=== PATIENT | male | born 2000 | race Two or more races ===

== ENCOUNTER 2024-12-28 11:37 | Emergency (ER) | payer SELFPAY ==
[2024-12-28 11:38] VITALS: PULSE 160; RESP 20; O2SAT 99
--- NOTE | 2024-12-28 11:50 | PC.NURSE ---
PT AND FRIEND LEFT. THEY WANTED TO GO HOME AND NOT STAY. [facility] HERE AND TALKED TO THEM.
== END 2024-12-28 13:01 | disposition left against medical advice (07) ==
PROVIDERS: Emergency Provider Emergency Medicine
DX: Z53.21 Procedure and treatment not carried out due to patient leaving prior to being seen by health care provider (principal)
CPT/HCPCS: 99281

== ENCOUNTER 2025-04-15 19:28 | Emergency (ER) | payer SELFPAY ==
[2025-04-15 19:39] VITALS: PULSE 105; RESP 16; O2SAT 97; BMI 24.3
--- NOTE | 2025-04-15 20:00 | PC.NURSE ---
pt pulled out iv adnd tried to leave
--- NOTE | 2025-04-15 20:04 | PC.NURSE ---
pt pulled out iv threatening medical staff, refused medical treatment non complaint.
--- NOTE | 2025-04-16 04:48 | PC.RT ---
at [address] place pt on 4l nc due to spo2 dropping to 80s, hr 108, spo2 improved to 100% RR18
== END 2025-04-15 20:05 | disposition left against medical advice (07) ==
LOC: SERX 20:13
PROVIDERS: Emergency Provider Emergency Medicine
DX: Z53.21 Procedure and treatment not carried out due to patient leaving prior to being seen by health care provider (principal)
CPT/HCPCS: 99283

== ENCOUNTER 2025-04-22 00:26 | Emergency (ER) | payer SELFPAY ==
[2025-04-22 00:32] VITALS: PULSE 92; RESP 16; O2SAT 98
--- NOTE | 2025-04-22 01:32 | PC.NURSE ---
PATIENT WALKED OUT OF ED LOBBY AT THIS TIME, THIS NURSE WENT OUTSIDE TO CALL PATIENT AND NO ANSWER RECEIVED.
--- NOTE | 2025-04-22 01:41 | PC.NURSE ---
STAFF CALLED PATIENT IN THE LOBBY, RESTROOM, AND OUTSIDE NO ANSWER RECEIVED.
--- NOTE | 2025-04-22 02:03 | PC.NURSE ---
STAFF CALLED PATIENT OUTSIDE, NO ANSWER RECEIVED.
== END 2025-04-22 02:03 | disposition left against medical advice (07) ==
LOC: SERX 01:35
PROVIDERS: Emergency Provider Emergency Medicine
DX: Z53.21 Procedure and treatment not carried out due to patient leaving prior to being seen by health care provider (principal)
CPT/HCPCS: 99282

== ENCOUNTER 2025-05-01 00:26 | Emergency (ER) | payer SELFPAY ==
[2025-05-01 00:27] VITALS: BMI 22.6
[2025-05-01 00:52] VITALS: BP 128/77; PULSE 108; RESP 18; TEMP 37.1; O2SAT 95
== END 2025-05-01 01:02 | disposition left against medical advice (07) ==
LOC: SERX 01:15
PROVIDERS: Emergency Provider Emergency Medicine
DX: Z53.21 Procedure and treatment not carried out due to patient leaving prior to being seen by health care provider (principal)
CPT/HCPCS: 99282

== ENCOUNTER 2025-05-18 12:35 | Emergency (ER) | payer SELFPAY ==
[2025-05-18 12:38] VITALS: PULSE 118; RESP 20; O2SAT 96
[2025-05-18 12:48] VITALS: BP 132/79; PULSE 98; RESP 20; TEMP 36.9; O2SAT 95
--- NOTE | 2025-05-18 12:50 | EKG_ITS ---
[facility] Test Date: 2025-05-18 Pat Name: NAGA ALMONTE Department: Room: - Gender: Male Director Learning Services: : 2000 Requested By: Ingrid Snider Order Number: [id number] Reading MD: Ingrid Snider Measurements Intervals Center Rate: 82 P: 59 SC: 146 QRS: 29 QRSD: 93 T: 28 QT: 375 QTc: 441 Interpretive Statements SINUS RHYTHM No previous ECG available for comparison /store/S0/[id number]/[id number].pdf
--- NOTE | 2025-05-18 12:54 | XR_ITS ---
Examination: Knee, left , 3 views Technique: Knee AP, lateral, oblique 3 views Date and time of exam: May 18, 2025 at 1344 hours INDICATIONS: Injury to the knee 2 days ago with knee pain FINDINGS: No fracture or dislocation. No foreign body IMPRESSION: No fracture or dislocation
--- NOTE | 2025-05-18 12:58 | EDNOTE_ITS ---
ED Alcohol RME/HPI General Chief Complaint: Alcohol Stated Complaint: ACOHOL INTOX Time Seen by Provider: 05/18/25 12:46 Source: patient and EMS Arrival date/time: 05/18/25 12:35 Mode of arrival: EMS Limitations: no limitations RME / HPI RME / HPI narrative: 24-year-old male was brought in by EMS for public intoxication. He was initially evaluated by police per EMS, he was given the option of being arrested or coming to the emergency room for evaluation. Patient opted to come here. He states he was drinking hurricanes and beer today. He does not quantify the amount. He denies any falls or injuries. He does have left knee pain, erythema, and mild edema for 1 day. Denies any chronic medical history. He is homeless. He has no other acute complaints. Related Data Previous Rx's ?Medication ?Instructions ?Recorded sulfamethoxazole 800 1 tab PO BID #14 tabs mg-trimethoprim 160 mg tablet (Bactrim DS) doxycycline hyclate 100 mg tablet 100 mg PO BID 7 days #14 tabs 05/18/25 Allergies Allergy/AdvReac Type Severity Reaction Status Date / Time No Known Allergies Allergy Verified 05/07/24 17:49 Review of Systems Review of Systems Systems Reviewed: All systems reviewed, normal except as documented ED Exam General Limitations: Present no limitations General appearance: Present alert, in no apparent distress and appears intoxicated Head Head exam: Present atraumatic, normocephalic and normal inspection Expanded Head Exam Head exam physical: Absent laceration, abrasion, contusion, raccoon eyes or Miller's sign Eye Eye exam: Present normal appearance, PERRL and EOMI ENT ENT exam: Present normal exam, normal oropharynx and mucous membranes moist Neck Neck exam: Present normal inspection, full ROM and trachea midline Chest Chest inspection: Present normal inspection and symmetric chest wall rise Respiratory Respiratory exam: Present normal lung sounds bilaterally Cardiovascular Cardiovascular exam: Present regular rate, normal rhythm and normal heart sounds Abdominal Exam Abdominal exam: Present soft and normal bowel sounds Extremities Exam Extremities exam: Present full ROM and other (There is mild erythema, warmth, edema, at the left knee. ) Back Exam Back exam: Present normal inspection and full ROM Neurological Exam Neurological exam: Present alert and oriented X3 Psychiatric Psychiatric exam: Present normal affect and normal mood Skin Skin exam: Present warm, dry, intact and normal color Course Course Course Narrative: At approximately 1430 p.m., patient removed his IV and requested to leave the emergency room. His gait is not stable. Workup was not completed although his alcohol level is greater than 500. Patient is not safe to leave the emergency room at this time. He was informed that he cannot safely be discharged from the emergency room and we are requesting that he stay in the for further care monitoring and possible interventions. Quality Measures none Orders Category Date Time Status EKG (ED ONLY) *Do not use* NOW Care 05/18/25 12:50 Completed EKG (ED Only) Stat Exams 05/18/25 12:50 Draft XR knee LT 3V Stat Exams 05/18/25 12:54 Completed Alcohol, Blood Medical Stat Lab 05/18/25 13:30 Completed CBC Stat Lab 05/18/25 13:30 Completed CMP [Comprehensive Metabolic Panel] Stat Lab 05/18/25 13:30 Completed CRP [C-Reactive Protein] Stat Lab 05/18/25 13:30 Completed Chlamydia/GC/TV - PCR Stat Lab 05/18/25 Ordered Drug Screen,Urine Stat Lab 05/18/25 13:41 Completed Lipase Stat Lab 05/18/25 13:30 Completed Sed Rate (ESR) Stat Lab 05/18/25 13:30 Completed UA, C/S IF [Urinalysis, C/S if Indicated] Stat Lab 05/18/25 13:41 Completed Uric Acid Stat Lab 05/18/25 13:30 Completed Doxycycline [Vibramycin] Med 05/18/25 18:31 Discontinued 100 mg PO X1 ONE Sodium Chloride 0.9% 1000 ml [Ns] 1,000 ml Med 05/18/25 12:48 Discontinued IV 999 mls/hr fentaNYL INJ [Sublimaze Inj] Med 05/18/25 12:48 Discontinued 50 mcg IVP X1 ONE Vital Signs Vital signs: Vital Signs Temperature 98.4 F 05/18/25 12:48 Pulse Rate 98 05/18/25 12:48 Respiratory Rate 20 05/18/25 12:48 Blood Pressure 132/79 H 05/18/25 12:48 Pulse Oximetry (%) 95 05/18/25 12:48 Oxygen Delivery Method Venturi Mask 05/18/25 12:48 Discharge Plan Plan Patient Disposition: HOME (Self Care) Patient condition on transfer: Stable Prescriptions/Referrals Prescriptions/Med Rec: New doxycycline hyclate 100 mg tablet 100 mg PO BID 7 Days Qty: 14 0RF No Action sulfamethoxazole-trimethoprim [Bactrim DS] 800-160 mg tablet 1 tab PO BID Qty: 14 0RF Referrals: No Primary/Family,Physician [Primary Care Provider] - In 1 week Problem List Clinical Impression: Alcoholic intoxication, Cellulitis Patient/Caregiver Discharge Instructions Education Materials: ED Cellulitis, ED Alcohol Intoxication Additional Instructions: - Obtain a primary doctor for close follow-up. - Use the provided antibiotic for antimicrobial coverage. - Return as needed for any worsening or emergent changes. Print Language: [place] Stand Alone Forms: [employer] Award Info., Patient Portal Info Letter Alcohol MDM Narrative MDM Narrative: 24-year-old male was brought in by EMS for public intoxication. He was initially evaluated by police per EMS, he was given the option of being arrested or coming to the emergency room for evaluation. Patient opted to come here. He states he was drinking hurricanes and beer today. He does not quantify the amount. He denies any falls or injuries. He does have left knee pain, erythema, and mild edema for 1 day. Denies any chronic medical history. He is homeless. He has no other acute complaints. On exam, patient was initially tachycardic. Vital signs are otherwise stable. Workup reveals elevated alcohol level. Workup was otherwise unremarkable. Patient stayed in the ER and was observed for period of time. He was found due to be self ambulating without assistance several times. His gait was stable. At approximately 2044 PM, patient went was again reevaluated. He is walking in the ER with a stable gait. He wants to be discharged. Will cover him with doxycycline for potential cellulitis of the left knee, this will also cover possible gonococcus. Patient will be discharged in the [place] time. He agrees to return as needed for worsening emergent changes Patient data External records reviewed:: EMS form Clinical information provided by:: patient and EMS Social determinants that could affect healthcare access:: substance use Patient has the following chronic illnesses:: Alcohol abuse How is presenting disease/condition affected by chronic disease/condition?: exacerbated by Evaluation data The following diagnostics were reviewed and interpreted by me:: lab results Lab and/or radiology exams considered but not ordered:: n/a Interpretation Summary: Elevated alcohol level Medications / Prescriptions Medications or Prescriptions considered but not ordered:: n/a Medication administrations:: Medication Administration History Discontinued Medications Doxycycline Hyclate (Doxycycline 100 Mg Tablet) 100 mg PO X1 ONE Stop: 05/18/25 18:32 Last Admin: 05/18/25 18:47 Dose: 100 mg Documented By: ALEKSANDR Fentanyl Citrate (Fentanyl Cit Inj 50 Mcg/Ml Amp 2ml) 50 mcg IVP X1 ONE Stop: 05/18/25 12:49 Last Admin: 05/18/25 13:26 Dose: Not Given Documented By: NATHALIA Non-Admin Reason: Change of Condition Sodium Chloride (Ns) 1,000 mls @ 999 mls/hr IV .Q1H1M ONE Stop: 05/18/25 13:48 Last Infusion: 05/18/25 14:19 Dose: Infused Documented By: Admin: 05/18/25 13:18 Dose: 999 mls/hr Documented By: NATHALIA See above Consultations Consultation(s) initiated? (list below): No Diagnosis Differential diagnosis alcohol: hypomagnesemia and alcohol intoxication Most likely diagnosis given after review of the tests above:: Alcohol abuse Admission Indicated Admission indicated?: not indicated Admission Request Was there a request for admission?: No Disposition Plan Disposition Plan: Discharge Discharge Attestation Discharge Attestation: The patient and all family members were given an opportunity to ask questions and understood the discharge instructions. Discharge instructions specifically effects, indications for sooner follow up or return to the emergency department, and the expected course of current diagnosis. Patient condition: Stable
[2025-05-18] MEDS: SODIUM CHLORIDE 0.9% 1000 ML 1,000 ML 999 ML IV (13:18)
[2025-05-18 13:32] VITALS: BMI 21.3
[2025-05-18 13:54] LABS: Collection Type, Urine Voided; RBC,Urine 0 /hpf (0-3); Squamous Epithelial Cell,Urine 0 /hpf (0-5); WBC,Urine 0 /hpf (0-5)
[2025-05-18 14:02] LABS: Basophils # (Auto) 0.1 Thou/mm3 (0.0-0.2); Basophils % (Auto) 1 % (0-2.5); Eosinophils # (Auto) 0.0 Thou/mm3 (0.0-0.5); Eosinophils % (Auto) 0 % (0-10); Hematocrit 38.8 % (41.0-53.0); Hemoglobin 13.3 g/dL (13.5-16.0); Immature Granulocytes Auto 0.02 Thou/mm3 (0.00-0.00); Lymphocytes # (Auto) 1.2 Thou/mm3 (1.0-4.8); Lymphocytes % (Auto) 19 % (10-50); Mean Corpuscular HGB Conc 34.3 g/dl (31.0-37.0); Mean Corpuscular Hemoglobin 32.3 pg (25.0-35.0); Mean Corpuscular Volume 94 fL (80-100); Monocytes # (Auto) 0.5 Thou/mm3 (0.0-0.8); Monocytes % (Auto) 8 % (0-12); Neutrophils # (Auto) 4.7 Thou/mm3 (1.8-7.7); Neutrophils % (Auto) 72 % (37-80); Nucleated Red Blood Cell # 0.00 Thou/mm3 (0.00-0.00); Nucleated Red Blood Cell % 0 /100 WBC (0); Platelet Count 99 Thou/mm3 (140-440); RDW Standard Deviation 45.0 fL (35.1-43.9); Red Blood Count 4.12 Miln/mm3 (4.50-5.90); White Blood Count 6.6 Thou/mm3 (3.8-10.6)
[2025-05-18 14:17] LABS: Bilirubin,Urine Negative (Negative); Blood,Urine Trace (Negative); Clarity,Urine Clear (Clear/Hazy); Color,Urine Colorless (Lt Yel-Yel); Culture Indicated,Urine Not Indicated; Glucose, Urine Negative (Negative); Ketones,Urine Negative (Negative); Leukocyte Esterase,Urine Negative (Negative); Nitrite,Urine Negative (Negative); PH,Urine 6.5 (5.0-7.0); Protein,Urine 1+ (Neg - Trace); Specific Gravity,Urine 1.004 (1.001-1.035); Urobilinogen,Urine Negative mg/dL (0.0-1.0)
[2025-05-18 14:24] LABS: Amphetamine/Methamp Scrn,U Negative (Negative); Barbiturate Screen,Urine Negative (Negative); Benzodiazepines Screen,Urine Negative (Negative); Benzoylecgonine Screen, Ur Negative (Negative); Fentanyl Screen,Urine Negative (Negative); Opiate Screen,Urine Negative (Negative); THC Screen,Urine Negative (Negative)
[2025-05-18 14:30] LABS: Alanine Aminotransferase 127 U/L (10-49); Albumin, Serum 4.5 gm/dL (3.5-5.0); Albumin/Globulin Ratio 1.4 (1.2-2.2); Alkaline Phosphatase 298 U/L (46-116); Anion Gap 18 (7-16); Aspartate Amino Transferase 370 U/L (0-34); BUN/Creatinine Ratio 8 Ratio (12-20); Bilirubin,Total 0.4 mg/dL (0.3-1.2); Blood Urea Nitrogen < 5 mg/dL (9-23); C-Reactive Protein < 0.5 mg/dL (0.0-0.9); Calcium 9.5 mg/dL (8.3-10.6); Calcium (Corrected) 9.5 mg/dL (8.5-10.1); Carbon Dioxide 23.5 mMol/L (20.0-31.0); Chloride 101 mMol/L (98-107); Creatinine (Component) 0.6 mg/dL (0.6-1.3); Estimated Creatinine Clearance 162.7 mL/min (>60); Globulin 3.2 gm/dL (2.3-3.5); Glucose 96 mg/dL (74-106); Lipase 152 U/L (12-53); Osmolality,Calculated 280 (275-295); Potassium 3.9 mMol/L (3.4-5.1); Sodium 142 mMol/L (136-145); Total Protein 7.7 gm/dL (5.7-8.2); eGFR > 60 See Note
[2025-05-18 14:35] LABS: Alcohol, Blood Medical 527.2 mg/dL (0-10.0)
[2025-05-18 14:39] LABS: Uric Acid 5.7 mg/dL (3.7-9.2)
[2025-05-18 15:20] LABS: Sed Rate (ESR) 87 mm/hr (0-15)
[2025-05-18 16:14] VITALS: BP 126/70; PULSE 80; RESP 18; TEMP 36.9; O2SAT 99
[2025-05-18 18:45] VITALS: BP 124/80; PULSE 97; RESP 17; TEMP 36.7; O2SAT 98
[2025-05-18] MEDS: DOXYCYCLINE 100 MG TABLET PO (18:47)
[2025-05-18 20:53] VITALS: BP 135/96; PULSE 105; RESP 16; TEMP 36.9; O2SAT 98
--- NOTE | 2025-05-18 20:53 | PC.NURSE ---
patient walked around er 2 laps with steady gait. patient denies any dizziness
[2025-05-19 10:04] LABS: Chlamydia trachomatis PCR Negative (Not Detect); Neisseria Gonorrhoeae DNA PCR Negative (Not Detect); Trichomonas Negative (Negative)
== END 2025-05-18 21:00 | disposition home or self-care (01) ==
PROVIDERS: Physician Assistant Medical; Emergency Provider Emergency Medicine
DX: F10.129 Alcohol abuse with intoxication, unspecified (principal); M25.562 Pain in left knee; Z59.00 Homelessness unspecified
CPT/HCPCS: 36415; 73562; 80053; 80307; 80320; 81001; 83690; 84550; 85025; 85652; 86140; 87491; 87591; 87661; 93005; 96360; 99283; J7030; A9270; G0480

== ENCOUNTER 2025-06-04 17:35 | Emergency (ER) | payer SELFPAY ==
[2025-06-04 17:38] VITALS: BP 114/64; PULSE 99; RESP 16; TEMP 36.7; O2SAT 96
[2025-06-04 18:05] VITALS: PULSE 101; RESP 18; O2SAT 98; BMI 25.8
--- NOTE | 2025-06-04 19:13 | EDNOTE_ITS ---
Nausea/Vomit./Diarrhea-RME/HPI General Chief complaint: Abdominal Pain Stated complaint: DRINKING ETOH TODAY, ABD PAIN Time Seen by Provider: 06/04/25 19:07 Arrival date/time: 06/04/25 17:35 24M with history of alcohol use presents to ED with 1 day of ab pain and some non-bloody diarrhea. Patient has been drinking today, but he drinks every day. Limitations: no limitations Related Data Previous Rx's ?Medication ?Instructions ?Recorded sulfamethoxazole 800 1 tab PO BID #14 tabs mg-trimethoprim 160 mg tablet (Bactrim DS) Allergies Allergy/AdvReac Type Severity Reaction Status Date / Time No Known Allergies Allergy Verified 06/04/25 18:11 Review of Systems Review of Systems Systems Reviewed: All systems reviewed, normal except as documented Constitutional Constitutional: Reports system reviewed and no additional complaints, except as documented, Denies fever(s) and Denies headache(s) ENT Ears, Nose, Mouth, and Throat: Denies disequilibrium and Denies headache(s) Cardiovascular Cardiovascular: Reports system reviewed and no additional complaints, except as documented, Denies chest pain and Denies dyspnea Respiratory Respiratory: Reports system reviewed and no additional complaints, except as documented, Denies cough and Denies dyspnea Gastrointestinal Gastrointestinal: Reports system reviewed and no additional complaints, except as documented, Reports as per HPI, Reports abdominal pain, Reports diarrhea, Denies nausea and Denies vomiting Neurologic Neurologic: Reports system reviewed and no additional complaints, except as documented, Denies confusion, Denies disequilibrium and Denies headache(s) Psychiatric Psychiatric: Denies confusion Past Medical History Past Medical History CARDIAC: Negative Congestive Heart Failure RESPIRATORY: Negative Chronic Obstructive Pulmonary Disease (COPD) GENITOURINARY: Negative Renal Disease ENDOCRINE: Negative Diabetes Mellitus Type 1 or Diabetes Mellitus Type 2 PSYCHO/SOCIAL: Positive Anxiety Social History SMOKING STATUS: Former smoker ED Exam General Limitations: Present no limitations General appearance: Present alert, in no apparent distress and appears intoxicated Head Head exam: Present atraumatic Eye Eye exam: Present normal appearance, PERRL and EOMI ENT ENT exam: Present normal exam, normal oropharynx and mucous membranes moist Neck Neck exam: Present normal inspection, full ROM and trachea midline Chest Chest inspection: Present normal inspection and symmetric chest wall rise Respiratory Respiratory exam: Present normal lung sounds bilaterally Cardiovascular Cardiovascular exam: Present regular rate, normal rhythm and normal heart sounds Abdominal Exam Abdominal exam: Present soft and normal bowel sounds Extremities Exam Extremities exam: Present normal inspection and full ROM Back Exam Back exam: Present normal inspection and full ROM Neurological Exam Neurological exam: Present alert, oriented X3 and CN II-XII intact Psychiatric Psychiatric exam: Present normal affect and normal mood Skin Skin exam: Present warm, dry, intact and normal color Course Quality Measures none Orders Category Date Time Status Famotidine [Pepcid] Med 06/04/25 19:08 Discontinued 40 mg PO X1 ONE Ondansetron Odt [Zofran Odt] Med 06/04/25 19:08 Discontinued 4 mg PO X1 ONE mg Hyd/Al Hyd/Betsey Susp [Maalox Susp] Med 06/04/25 19:08 Discontinued 30 ml PO X1 ONE Vital Signs Vital signs: Vital Signs Temperature 98.0 F 06/04/25 17:38 Pulse Rate 99 06/04/25 17:38 Respiratory Rate 16 06/04/25 17:38 Blood Pressure 114/64 06/04/25 17:38 Pulse Oximetry (%) 96 06/04/25 17:38 Oxygen Delivery Method Room Air 06/04/25 17:38 O2 at 96% on RA and WNLs Nausea/Vomiting/Diarrhea MDM Narrative MDM Narrative:: 24M with history of alcohol use presents to ED with 1 day of ab pain and some non-bloody diarrhea. Patient has been drinking today, but he drinks every day. Physical exam reveals no ab tenderness. Patient is afebrile, calm, but intoxicated. Patient is smiling. Patient eloped. Patient data External records reviewed:: [facility] previous records Clinical information provided by:: patient Social determinants that could affect healthcare access:: alcohol use Patient has the following chronic illnesses:: alcohol How is presenting disease/condition affected by chronic disease/condition?: exacerbated by Evaluation data The following diagnostics were reviewed and interpreted by me:: other (specify) (none) Lab and/or radiology exams considered but not ordered:: not ordered Interpretation Summary: n/a Medications / Prescriptions Medications / Prescriptions considered but not ordered:: ordered Medication administrations:: Medication Administration History Discontinued Medications Al Hydrox/Mg Hydrox/Simethicone (Mg Hyd/Al Hyd/Betsey (Maalox Reg) Susp 30 Ml Udc) 30 ml PO X1 ONE Stop: 06/04/25 19:09 Famotidine (Famotidine 20 Mg Tablet) 40 mg PO X1 ONE Stop: 06/04/25 19:09 Ondansetron HCl (Ondansetron Odt 4 Mg Tabrap) 4 mg PO X1 ONE; Protocol Stop: 06/04/25 19:09 above Consultations Consultation(s) initiated? (list below): No Diagnosis Nausea Differential Diagnosis: traveler's diarrhea, food poisoning, gastroenteritis, clostridium difficile infection, drug-induced nausea and vomiting and dehydration Most likely diagnosis given after review of the tests above:: gastroenteritis, alcohol use Admission Indicated Admission indicated?: not indicated Admission Request Was there a request for admission?: No Disposition Plan Disposition Plan: other (specify) (eloped) Discharge Plan Plan Patient Disposition: Elopement Prescriptions/Referrals Prescriptions/Med Rec: No Action sulfamethoxazole-trimethoprim [Bactrim DS] 800-160 mg tablet 1 tab PO BID Qty: 14 0RF Referrals: No Primary/Family,Physician [Primary Care Provider] - In 1 week Problem List Clinical Impression: Gastroenteritis, Alcohol use Patient/Caregiver Discharge Instructions Print Language: [place] PETER/ANDREW Supervising Physician PETER/ANDREW Supervising Physician: Dr. James
== END 2025-06-04 20:33 | disposition left against medical advice (07) ==
LOC: SERX 19:15
PROVIDERS: Emergency Provider Emergency Medicine
DX: K52.9 Noninfective gastroenteritis and colitis, unspecified (principal); F10.90 Alcohol use, unspecified, uncomplicated
CPT/HCPCS: 99281

== ENCOUNTER 2025-06-15 18:14 | Emergency (ER) | payer SELFPAY ==
--- NOTE | 2025-06-15 18:23 | PD.EDADULT ---
ED General RME/HPI General Chief complaint: Suicidal Stated complaint: HOLD Time Seen by Provider: 06/15/25 18:15 Arrival date/time: 06/15/25 18:14 CC: Suicidal ideation HPI patient presents to the ER via PD not in handcuffs on 5150. Patient is well-known to us for recurrent alcohol intoxication. PD states patient was found in a roadside coherent with no slurred speech, stating that he wanted to end it . PD reports the patient's plan is to do as his father did only this time I will get the not straight implying that father hung himself. Patient was found lying in the street. Patient noted to have a medical identification band on his right wrist from another facility. He admits that he was in a rehab center but left. Patient has no specific complaints of pain. Related Data Previous Rx's ?Medication ?Instructions ?Recorded sulfamethoxazole 800 1 tab PO BID #14 tabs 05/07/24 mg-trimethoprim 160 mg tablet (Bactrim DS) Allergies Allergy/AdvReac Type Severity Reaction Status Date / Time No Known Allergies Allergy Verified 06/04/25 18:11 Review of Systems Review of Systems Narrative Review of Systems: GEN: No fever, no chills, no weight loss EYES: No discharge, no visual changes, no pain HEENT: No ear pain, no congestion, no sore throat PULM: No shortness of breath, no cough, no congestion CV: No chest pain, no dyspnea on exertion, no palpitations GI: No nausea, no vomiting, no diarrhea, no pain, no constipation : No frequency, no urgency, no dysuria MUSC/SKEL: No joint pain, no back pain SKIN: No rash PSYCH: No hallucinations, + suicidal ideation HEME/LYMPH: No easy bleeding or bruising tendencies NEURO: No weakness, no headache Past Medical History Past Medical History CARDIAC: Negative Congestive Heart Failure RESPIRATORY: Negative Chronic Obstructive Pulmonary Disease (COPD) GENITOURINARY: Negative Renal Disease ENDOCRINE: Negative Diabetes Mellitus Type 1 or Diabetes Mellitus Type 2 PSYCHO/SOCIAL: Positive Anxiety Social History SMOKING STATUS: Former smoker ED Exam Narrative Physical exam: [General: Appears not in any acute distress Head normocephalic HEENT: Within acceptable limits Neck is supple nontender Chest equal chest rise nontender to palpation Respiratory: Clear to auscultation no wheezes crackles or rubs CV: Rate rhythm is regular no murmurs rubs or clicks Abdomen is soft nontender no masses positive bowel sounds all 4 quadrants Back: No CVA tenderness no spinous process tenderness from cervical spine thoracic and lumbar spine Skin: Intact no petechiae rash induration ulceration or crepitus Extremities: Moving all extremity against resistance cap refill less than 2 seconds neurosensory intact Neuro: Awake alert oriented x3 Glascow coma 15 no focal deficits] Course Quality Measures none Orders Category Date Time Status Diet Regular Diet 06/16/25 Breakfast Active Alcohol, Blood Medical Stat Lab 06/15/25 18:33 Completed CBC Stat Lab 06/15/25 18:33 Completed CMP [Comprehensive Metabolic Panel] Stat Lab 06/15/25 18:33 Completed Drug Screen,Urine Stat Lab 06/15/25 19:01 Completed Vital Signs Vital signs: Vital Signs Temperature 99.2 F 06/15/25 18:27 Pulse Rate 121 H 06/15/25 18:27 Respiratory Rate 20 06/15/25 18:27 Blood Pressure 129/82 06/15/25 18:27 Pulse Oximetry (%) 95 06/15/25 18:27 Oxygen Delivery Method Room Air 06/15/25 18:27 Discharge Plan Plan Patient Disposition: HOME (Self Care) Prescriptions/Referrals Prescriptions/Med Rec: No Action sulfamethoxazole-trimethoprim [Bactrim DS] 800-160 mg tablet 1 tab PO BID Qty: 14 0RF Referrals: No Primary/Family,Physician [Primary Care Provider] - In 1 week Problem List Clinical Impression: Suicidal ideation, Alcohol intoxication, Illicit drug use Patient/Caregiver Discharge Instructions Education Materials: Recognizing Suicide Warning ..., ED Drug Abuse, ED Alcohol Intoxication Print Language: [place] Island[place] Stand Alone Forms: [employer] Award Info., Patient Portal Info Letter MDM Clinical Information Provided by patient and law enforcement Medical Records Reviewed [facility] Meds/Rx Considered, not Ordered None Labs/Rad/Tests considered, not Ordered None Chronic Illness/Social Conditions which may negatively complicate care or outcome(s)-explain: ETOH/drugs/substance abuse Lab Interpretation Lab(s) interpretation(s): CBC shows no leukocytosis H&H of 12.7 and 36.7 respectively. Platelets at 146. CMP shows sodium of 146 BUN of 6 glucose of 123. T. bili of 0.2 mild transaminitis. No other significant electrolyte imbalances alcohol level of 319. UDS is positive for methamphetamines marijuana and benzodiazepine.
[2025-06-15 18:27] VITALS: BP 129/82; PULSE 121; RESP 20; TEMP 37.3; O2SAT 95
[2025-06-15 18:42] LABS: Basophils # (Auto) 0.0 Thou/mm3 (0.0-0.2); Basophils % (Auto) 1 % (0-2.5); Eosinophils # (Auto) 0.1 Thou/mm3 (0.0-0.5); Eosinophils % (Auto) 1 % (0-10); Hematocrit 36.7 % (41.0-53.0); Hemoglobin 12.7 g/dL (13.5-16.0); Immature Granulocytes Auto 0.01 Thou/mm3 (0.00-0.00); Lymphocytes # (Auto) 2.2 Thou/mm3 (1.0-4.8); Lymphocytes % (Auto) 45 % (10-50); Mean Corpuscular HGB Conc 34.6 g/dl (31.0-37.0); Mean Corpuscular Hemoglobin 33.4 pg (25.0-35.0); Mean Corpuscular Volume 97 fL (80-100); Monocytes # (Auto) 0.3 Thou/mm3 (0.0-0.8); Monocytes % (Auto) 6 % (0-12); Neutrophils # (Auto) 2.3 Thou/mm3 (1.8-7.7); Neutrophils % (Auto) 48 % (37-80); Nucleated Red Blood Cell # 0.00 Thou/mm3 (0.00-0.00); Nucleated Red Blood Cell % 0 /100 WBC (0); Platelet Count 146 Thou/mm3 (140-440); RDW Standard Deviation 43.5 fL (35.1-43.9); Red Blood Count 3.80 Miln/mm3 (4.50-5.90); White Blood Count 4.9 Thou/mm3 (3.8-10.6)
--- NOTE | 2025-06-15 19:00 | PC.LAC ---
pt refusing to answer [facility] suicide screening,
[2025-06-15 19:14] VITALS: BMI 29.2
[2025-06-15 19:17] LABS: Alanine Aminotransferase 55 U/L (10-49); Albumin, Serum 4.9 gm/dL (3.5-5.0); Albumin/Globulin Ratio 1.9 (1.2-2.2); Alcohol, Blood Medical 319.2 mg/dL (0-10.0); Alkaline Phosphatase 146 U/L (46-116); Anion Gap 14 (7-16); Aspartate Amino Transferase 82 U/L (0-34); BUN/Creatinine Ratio 8 Ratio (12-20); Bilirubin,Total 0.2 mg/dL (0.3-1.2); Blood Urea Nitrogen 6 mg/dL (9-23); Calcium 9.7 mg/dL (8.3-10.6); Calcium (Corrected) 9.7 mg/dL (8.5-10.1); Carbon Dioxide 25.9 mMol/L (20.0-31.0); Chloride 106 mMol/L (98-107); Creatinine (Component) 0.8 mg/dL (0.6-1.3); Globulin 2.6 gm/dL (2.3-3.5); Glucose 123 mg/dL (74-106); Osmolality,Calculated 289 (275-295); Potassium 4.0 mMol/L (3.4-5.1); Sodium 146 mMol/L (136-145); Total Protein 7.5 gm/dL (5.7-8.2); eGFR > 60 See Note
[2025-06-15 19:21] LABS: Amphetamine/Methamp Scrn,U Positive (Negative); Barbiturate Screen,Urine Negative (Negative); Benzodiazepines Screen,Urine Positive (Negative); Benzoylecgonine Screen, Ur Negative (Negative); Fentanyl Screen,Urine Negative (Negative); Opiate Screen,Urine Negative (Negative); THC Screen,Urine Positive (Negative)
--- NOTE | 2025-06-16 01:03 | PD.EDADDENDU ---
Emergency Room Addendum Addendum Narrative: 2300: Care assumed from Rolf Mcdonald NP (emergency mid-level provider). Past medical, surgical, social and family history reviewed. Vitals and home medications reviewed. Results and treatment plan discussed. I will assume the care of the patient at this time and will follow the patient, pending psych evaluation. The following addendum documentation note is intended to reflect any pending information, findings, or radiology results not included in the patient?s initial chart by the previous shift scribe. 0600: Care assumed by Dr. Love (emergency physician). Past medical, surgical, social and family history reviewed. Vitals and home medications reviewed. Results and treatment plan discussed. They will assume the care of the patient at this time and will follow the patient, pending psych evaluation.
[2025-06-16 06:35] VITALS: BP 134/84; PULSE 82; RESP 18; TEMP 36.9; O2SAT 96
[2025-06-16 07:15] VITALS: BP 138/93; PULSE 88; RESP 15; TEMP 37; O2SAT 98
--- NOTE | 2025-06-16 08:50 | PD.EDADDENDU ---
Emergency Room Addendum Addendum Narrative: care assumed at 0600 Per SW, safetly plan in place. Patient has an appointment tomorrow 0845 with behavioral health
--- NOTE | 2025-06-16 08:55 | PC.LAC ---
PER PROCESS EXPERT, PT WILL BE PROVIDED WITH A RIDE TO CUSTODIAL.
[2025-06-16 09:01] VITALS: BP 150/92; PULSE 86; RESP 15; TEMP 36.9; O2SAT 99
--- NOTE | 2025-06-16 09:26 | PC.CC ---
0830-Pt is a 24 yo male [employer] for a 5150 DTS, as he was found on the side of the road, passed out and made statements he wanted to kill himself. ASW Ines Jolley met with patient [id number] to complete assessment. ASW introduced self, role, and reason for assessment. ASW disclosed limits of confidentiality as well. Patient appeared alert and oriented to self, place, and situation. Patient was pleasant; his mood appeared restless; his behavior appeared disinhibited with flat affect. Patient?s thought process was linear and organized. No signs of delusions, paranoid or AVH. Pt reported that yesterday he was under the influence of Meth, Marijuana, Bezoids and drunk with alcohol. Pt reported he was passed out on the side of the road when LE approached him. Pt reported he has been homeless for a few months, does not have contact with him family and occasionally will stay with friends, but mostly lives on the streets. Pt reports there are times he has thoughts of passive SI, but denies a plan or intent. Pt reports he has never been connected to MH services, but admits to be connected to residential substance abuse program in [place], in which he recently eloped from. Pt reports he has been using drugs since he was 19 years old and that is when he began self harming. However, pt stated he did not like the way cutting felt so he has not cut since he was 20. Pt reported at times he has thoughts of not wanting to be around, as he stated it is due to being homeless and addicted to drugs, but stated he does not have a plan. Pt reports his thoughts increase when he is using drugs and drunk. Pt reports that as of today, he denies SI. Pt states he would want help in recovery and MH services. ASW and [employer] DRAW[employer] spring intern Noris Duarte provided pt community resources to [facility] inpatient and outpatient services as well as MH services. ASW staffed the case with [facility], Director, Bakari García and it was determined that the pt d/c on a safety plan with an MH appointment in place. FANCY W[employer] DRAWER [employer] scheduled an appointment for the pt at [facility] to see his PCP and a mental health clinician tomorrow at 8:45am. [facility] will provide services. ASW was able to get a bed for the pt [facility]. ER provider agrees to the plan. Assigned RN is aware. ASW provided transportation to the [facility] for the pt.
== END 2025-06-16 09:15 | disposition home or self-care (01) ==
PROVIDERS: Registered Nurse General Practice; Emergency Provider Emergency Medicine
DX: Z04.6 Encounter for general psychiatric examination, requested by authority (principal); R45.851 Suicidal ideations; F10.929 Alcohol use, unspecified with intoxication, unspecified; F19.90 Other psychoactive substance use, unspecified, uncomplicated; Y90.8 Blood alcohol level of 240 mg/100 ml or more
CPT/HCPCS: 36415; 80053; 80307; 80320; 85025; 96127; 99283; G0480

== ENCOUNTER 2025-07-10 20:06 | Emergency (ER) | payer SELFPAY ==
[2025-07-10 20:22] VITALS: PULSE 110; O2SAT 98
--- NOTE | 2025-07-10 20:26 | EKG_ITS ---
[facility] Test Date: 2025-07-10 Pat Name: NAGA ALMONTE Department: Room: - Gender: Male Agent: : [id number] Requested By: ED Temporary Provider Order Number: [id number] Reading MD: ED Temporary Provider Measurements Intervals [place] Rate: 122 P: 25 MI: 134 QRS: 5 QRSD: 86 T: 4 QT: 291 QTc: 416 Interpretive Statements SINUS TACHYCARDIA MINIMAL VOLTAGE CRITERIA FOR LVH, CONSIDER NORMAL VARIANT [MEETS CRITERIA IN ONE OF: R(aVL), S(V1), R(V5), R(V5/V6)+S(V1)] ABNORMAL RHYTHM ECG Compared to ECG 05/18/2025 13:13:13 Sinus rhythm no longer present /store/S0/[id number]/[id number].pdf
[2025-07-10 20:39] VITALS: BP 120/83; PULSE 120; RESP 19; TEMP 36.8; O2SAT 97
--- NOTE | 2025-07-10 21:08 | PD.EDRME ---
Rapid Medical Screening Exam [facility], [facility] Arrival date/time: 07/10/25 20:06 24M with history of alcohol/drug abuse presents to ED with chest pain. Chief Complaint: Chest Pain Vital signs: Vital Signs Temperature 98.2 F 07/10/25 20:39 Pulse Rate 120 H 07/10/25 20:39 Respiratory Rate 19 07/10/25 20:39 Blood Pressure 120/83 07/10/25 20:39 Pulse Oximetry (%) 97 07/10/25 20:39 Oxygen Delivery Method Room Air 07/10/25 20:39
--- NOTE | 2025-07-10 21:20 | PC.NURSE ---
PATIENT WAS CALLED FOR LAB DRAW, NO ANSWER RECEIVED.
--- NOTE | 2025-07-10 21:31 | PC.NURSE ---
LAB STAFF CALLED PATIENT IN THE LOBBY AND OUTSIDE, NO ANSWER RECEIVED.
--- NOTE | 2025-07-10 21:43 | PC.NURSE ---
CALLED PATIENT IN THE LOBBY AND OUTSIDE, NO ANSWER RECEIVED.
== END 2025-07-10 21:46 | disposition left against medical advice (07) ==
LOC: SERX 21:54
PROVIDERS: Emergency Provider Emergency Medicine
DX: Z53.21 Procedure and treatment not carried out due to patient leaving prior to being seen by health care provider (principal)
CPT/HCPCS: 80053; 80320; 83735; 84484; 85025; 93005; 99283; G0480

== ENCOUNTER 2025-07-30 19:24 | Emergency (ER) | payer SELFPAY ==
[2025-07-30 18:48] VITALS: PULSE 120; RESP 18; O2SAT 98
--- NOTE | 2025-07-30 18:54 | PD.EDALCOH ---
ED Alcohol RME/HPI General Chief Complaint: Alcohol Stated Complaint: ETOH Time Seen by Provider: 07/30/25 19:34 Arrival date/time: 27-year-old male patient homeless, with history of chronic alcoholism, was brought in by EMS for evaluation regarding possible alcohol intoxication. Apparently patient was noted to be drunk and stumbling, concerned citizen called law enforcement, and was told to go to the emergency room or go to residential. Patient opted to go to the emergency room instead. Currently patient is denying any alcohol abuse. Patient is minimally verbal. Patient denies any neck pain headache. No trauma noted. Related Data Previous Rx's ?Medication ?Instructions ?Recorded sulfamethoxazole 800 1 tab PO BID #14 tabs 05/07/24 mg-trimethoprim 160 mg tablet (Bactrim DS) Allergies Allergy/AdvReac Type Severity Reaction Status Date / Time No Known Allergies Allergy Verified 07/10/25 20:25 Review of Systems Review of Systems Narrative Review of Systems: Review of system reviewed and within normal limits except mentioned in HPI ED Exam Narrative Physical exam: VITAL SIGNS: Reviewed. GENERAL APPEARANCE: Alert and interactive, follows simple commands, no acute distress, looks intoxicated HEAD AND FACE: Non-traumatic. ENT: PERRL, pink conjunctivitis, eyelid no trauma, Mucous membrane moist. NECK: Supple, nontender, no nuchal rigidity. CHEST: No tenderness, no crepitus, no paradoxical movement, no retractions. LUNGS: Clear, well ventilated, symmetric, no rales, no wheezing, no ronchi, no stridor, good breath sounds bilaterally. HEART: Regular rate, regular rhythm, no murmur, no gallops. ABDOMEN: Soft, positive bowel sounds, nondistended, no guarding, nontender, no rebound, no masses, RECTAL: Deferred. GENITAL: Deferred. NEUROLOGICAL: Gross motor function intact sensory function intact, Appropriate for age. MUSCULOSKELETAL: low back nontender, full range of motion. EXTREMITIES: Nontender, full range of motion. SKIN: Color pink, dry, no rash, no lacerations, no abrasions, no contusions. LYMPHATICS: Deferred. Course Quality Measures none Orders Category Date Time Status Alcohol, Blood Medical Stat Lab 07/30/25 18:53 Ordered CBC Stat Lab 07/30/25 18:53 Ordered CMP [Comprehensive Metabolic Panel] Stat Lab 07/30/25 18:53 Ordered Ondansetron Odt [Zofran Odt] Med 07/30/25 18:53 Discontinued 4 mg PO X1 ONE Vital Signs Vital signs: Vital Signs Temperature 98.7 F 07/30/25 19:01 Pulse Rate 107 H 07/30/25 19:01 Respiratory Rate 18 07/30/25 19:01 Blood Pressure 115/64 07/30/25 19:01 Pulse Oximetry (%) 95 07/30/25 19:01 Oxygen Delivery Method Room Air 07/30/25 19:01 Discharge Plan Plan Patient Disposition: Elopement Prescriptions/Referrals Prescriptions/Med Rec: No Action sulfamethoxazole-trimethoprim [Bactrim DS] 800-160 mg tablet 1 tab PO BID Qty: 14 0RF Referrals: No Primary/Family,Physician [Primary Care Provider] - In 1 week Problem List Clinical Impression: Alcoholic intoxication Patient/Caregiver Discharge Instructions Print Language: Albanian Alcohol MDM Narrative MDM Narrative: 27-year-old male patient homeless, with history of chronic alcoholism, was brought in by EMS for evaluation regarding possible alcohol intoxication. Apparently patient was noted to be drunk and stumbling, concerned citizen called law enforcement, and was told to go to the emergency room or go to residential. Patient opted to go to the emergency room instead. Currently patient is denying any alcohol abuse. Patient is minimally verbal. Patient denies any neck pain headache. No trauma noted. Patient eloped from the emergency room Patient data External records reviewed:: None Clinical information provided by:: patient Social determinants that could affect healthcare access:: alcohol use Patient has the following chronic illnesses:: Chronic alcoholism How is presenting disease/condition affected by chronic disease/condition?: exacerbated by Evaluation data The following diagnostics were reviewed and interpreted by me:: other (specify) (None) Lab and/or radiology exams considered but not ordered:: None Interpretation Summary: None Medications / Prescriptions Medications or Prescriptions considered but not ordered:: None Medication administrations:: Medication Administration History Discontinued Medications Ondansetron HCl (Ondansetron Odt 4 Mg Tabrap) 4 mg PO X1 ONE; Protocol Stop: 07/30/25 18:54 Zofran Consultations Consultation(s) initiated? (list below): No Diagnosis Differential diagnosis alcohol: alcohol intoxication and alcohol withdrawal syndrome Most likely diagnosis given after review of the tests above:: Alcohol intoxication Admission Indicated Admission indicated?: not indicated Explain why admission is indicated or not indicated:: None Admission Request Was there a request for admission?: No Disposition Plan Disposition Plan: other (specify) (Elopement)
[2025-07-30 19:01] VITALS: BP 115/64; PULSE 107; RESP 18; TEMP 37.1; O2SAT 95
== END 2025-07-30 19:42 | disposition left against medical advice (07) ==
LOC: SERX 19:39
PROVIDERS: Emergency Provider Emergency Medicine
DX: F10.229 Alcohol dependence with intoxication, unspecified (principal); Y90.9 Presence of alcohol in blood, level not specified; Z59.00 Homelessness unspecified
CPT/HCPCS: 80053; 80320; 85025; 99281; G0480